=== PATIENT | male | born 1995 | race Caucasian/White ===

== ENCOUNTER 2018-03-01 18:17 | Emergency (ER) | payer SELFPAY ==
[~2018-03-01] VITALS: Ht 185.4 cm; Wt 72.6 kg
[2018-03-01 18:29] VITALS: BP 151/93
--- NOTE | 2018-03-01 18:50 | NUR ---
PATIENT AMBULATED TO ER BED 6.
--- NOTE | 2018-03-01 19:00 | NUR ---
PT PRESENT TOT ED DUE TO GROIN AND TESTICULAR PAIN SINCE SATURDAY; DENIES ANY TRAUMA/ INJURY; PT STATES PAIN IS AGGRAVATED BY WALKING/SITTING; PT TOOK TYLENOL AND OFFER BRIEF RELIEF; DENIES ANY MEDICAL HX; SAFETY PRECAUTION INSTITUTED;NEEDS ATTENDED; ER MD WILL BE NOTIFIED OF PT'S CONDITION.
[2018-03-01] MEDS ORDERED: HYDROcodone/APAP 5/325 MG 1 TAB TAB PO ONE (19:30)
[2018-03-01] MEDS ORDERED: KETOROLAC 30 MG/ML VIAL IM ONE (19:30)
--- NOTE | 2018-03-01 19:52 | NUR ---
xray at bedside
--- NOTE | 2018-03-01 20:04 | NUR ---
Ultrasound at bedside.
--- NOTE | 2018-03-01 21:30 | NUR ---
pt resting. denies any pain at this time
--- NOTE | 2018-03-01 22:45 | NUR ---
Patient discharged with v/s stable. Written and verbal after care instructions given and explained. Patient alert, oriented and verbalized understanding of instructions. Ambulatory with steady gait. All questions addressed prior to discharge. ID band removed. Patient advised to follow up with PMD. Rx of NAPROSYN, NORCO, CLOTRIMAZOLE given. Patient educated on indication of medication including possible reaction and side effects. Opportunity to ask questions provided and answered.
[2018-03-01 22:46] VITALS: BP 117/68
== END 2018-03-01 22:45 | disposition home or self-care (01) ==
LOC: MED 18:17
DX: R10.31 Right lower quadrant pain (principal); N50.811 Right testicular pain; B35.9 Dermatophytosis, unspecified
CPT/HCPCS: 73502; 76870; 96372; 99284; J1885; Q0092